=== PATIENT | female | born 1995 | race Caucasian/White ===

== ENCOUNTER 2017-05-15 14:22 | Emergency (ER) | payer OTHER ==
[2017-05-15 14:50] VITALS: TEMP 98.6
--- NOTE | 2017-05-15 16:03 | EDPHY ---
H & P Stated Complaint: chest pain and dyspnea x 1 week sent by PCP Time Seen by Provider: 05/15/17 15:49 HPI/ROS: CHIEF COMPLAINT: Chest Pain HISTORY OF PRESENT ILLNESS: The patient is a 21 female who comes to the emergency department complaining of chest pain for last week. States that she has a stabbing sensation in the since her chest last for about 30 seconds at a time. Today she also had some tingling her left leg, stabbing pain for and spasming in left her neck. He denies. She has some stressed school but nothing unusual. She does have panic attacks states that this does not feel similar. She had some shortness of breath around 1 o'clock this afternoon. No nausea vomiting or GI symptoms. No trauma or injury. No headache. REVIEW OF SYSTEMS: Constitutional: denies: chills, fever, recent illness, recent injury EENTM: denies: blurred vision, double vision, nose congestion Respiratory: denies: cough, shortness of breath Cardiac: HPI denies: irregular heart rate, lightheadedness, palpitations Gastrointestinal/Abdominal: denies: abdominal pain, diarrhea, nausea, vomiting, blood streaked stools Genitourinary: denies: dysuria, frequency, hematuria, pain Musculoskeletal: See HPI Skin: denies: lesions, rash, jaundice, bruising Neurological: denies: headache, numbness, paresthesia, tingling, dizziness, weakness Hematologic/Lymphatic: denies: blood clots, easy bleeding, easy bruising Immunologic/allergic: denies: HIV/AIDS, transplant EXAM: GENERAL: Well-appearing, well-nourished and in no acute distress. HEAD: Atraumatic, normocephalic. EYES: Pupils equal round and reactive to light, extraocular movements intact, sclera anicteric, conjunctiva are normal. ENT: TMs normal, nares patent, oropharynx clear without exudates. Moist mucous membranes. NECK: Normal range of motion, supple without lymphadenopathy or JVD. LUNGS: Breath sounds clear to auscultation bilaterally and equal. No wheezes rales or rhonchi. HEART: Regular rate and rhythm without murmurs, rubs or gallops. ABDOMEN: Soft, nontender, normoactive bowel sounds. No guarding, no rebound. No masses appreciated. BACK: No CVA tenderness, no spinal tenderness, step-offs or deformities EXTREMITIES: Normal range of motion, no pitting or edema. No clubbing or cyanosis. NEUROLOGICAL: Cranial nerves II through XII grossly intact. Normal speech, normal gait. 5/5 strength, normal movement in all extremities, normal sensation PSYCH: Normal mood, normal affect. SKIN: Warm, dry, normal turgor, no visible rashes or lesions. Source: Patient Exam Limitations: No limitations - Personal History LMP (Females 10-55): 1-7 Days Ago Current Tetanus/Diphtheria Vaccine: Yes - Medical/Surgical History Hx Asthma: Yes Hx Chronic Respiratory Disease: No Hx Diabetes: No Hx Cardiac Disease: No Hx Renal Disease: No Hx Cirrhosis: No Hx Alcoholism: No Hx HIV/AIDS: No Hx Splenectomy or Spleen Trauma: No Other PMH: asthma as a child , anxiety - Family History Significant Family History: No pertinent family hx - Social History Smoking Status: Never smoked Alcohol Use: Sober Drug Use: None Constitutional: Initial Vital Signs Temperature (C) 37.0 C 05/15/17 14:48 Heart Rate 64 05/15/17 14:48 Respiratory Rate 18 05/15/17 14:48 Blood Pressure 131/74 H 05/15/17 14:48 O2 Sat (%) 96 05/15/17 14:48 O2 Delivery Mode Room Air Allergies/Adverse Reactions: No Known Allergies Allergy (Unverified 05/15/17 14:50) Home Medications: Medication Instructions Recorded NK [No Known Home Meds] 05/15/17 Medical Decision Making - Diagnostics EKG Interpretation: An EKG obtained and was read and documented in trace view. Please see trace view for full reading and report. Sinus rhythm, no acute ischemic changes Imaging: Discussed imaging studies w/ call out clerk Radiologist ED Course/Re-evaluation: 5:20 p.m. we discussed the test results with patient and dad. The patient feels completely normal currently. We discussed follow-up and indications for returning. She understands we do not have a specific diagnosis for her symptoms today. She understands the may be related to anxiety and her father seems to agree with this. Differential Diagnosis: Partial list of the Differential diagnosis considered include but were not limited to; anxiety, PE, and although unlikely based on the history and physical exam, I also considered pneumonia, acute coronary disease, arrhythmia. I discussed these differential diagnoses and the plan with the patient as well as the usual and expected course. The patient understands that the diagnosis is provisional and that in medicine we are not always correct and that further workup is often warranted. Usual and customary warnings were given. All of the patient's questions were answered. The patient was instructed to return to the emergency department should the symptoms at all worsen or return, otherwise to followup with the physician as we discussed. - Data Points Laboratory Results: Laboratory Results 05/15/17 15:22 05/15/17 15:22 Departure - Departure Disposition: Home, Routine, Self-Care Clinical Impression: Anxiety Chest pain Qualifiers: Chest pain type: unspecified Qualified Code(s): R07.9 - Chest pain, unspecified Condition: Fair Instructions: Chest Pain (ED), Anxiety (ED) Referrals: BETSY YAÑEZ [Other] - As per Instructions
[2017-05-15 16:06] LABS: % IMMATURE GRANULYOCYTES 0.2 % (0.0-1.1); ABSOLUTE IMMATURE GRANULOCYTES 0.01 10^3/uL (0.00-0.10); ADD DIFF? NO; ADD MORPH? NO; ADD SCAN? NO; ATYPICAL LYMPHOCYTE FLAG 30 (0-99); FRAGMENT RBC FLAG 0 (0-99); HEMATOCRIT 38.4 % (38.0-47.0); HEMOGLOBIN 13.7 g/dL (12.6-16.3); LEFT SHIFT FLG 0 (0-99); LIPEMIA HEMOLYSIS FLAG 90 (0-99); MEAN CELL HEMOGLOBIN 32.2 pg (27.9-34.1); MEAN CELL HEMOGLOBIN CONCENTR. 35.7 g/dL (32.4-36.7); MEAN CELL VOLUME 90.1 fL (81.5-99.8); PLATELET CLUMPS FLAG 10 (0-99); PLATELET COUNT 258 10^3/uL (150-400); RED BLOOD CELL COUNT 4.26 10^6/uL (4.18-5.33); RED CELL DISTRIBUTION WIDTH 11.9 % (11.5-15.2)
[2017-05-15 16:13] LABS: ALANINE AMINOTRANSFERASE 27 IU/L (9-52); ALBUMIN 4.5 g/dL (3.5-5.0); ALKALINE PHOSPHATASE 74 IU/L (38-126); ANION GAP 13 mEq/L (8-16); ASPARTATE AMINOTRANSFERASE 25 IU/L (14-46); BILIRUBIN,TOTAL 1.3 mg/dL (0.1-1.4); BILIRUBIN-CONJUGATED 0.4 mg/dL (0.0-0.5); BILIRUBIN-UNCONJUGATED 0.9 mg/dL (0.0-1.1); CALCIUM 9.7 mg/dL (8.5-10.4); CARBON DIOXIDE 20 mEq/l (22-31); CHLORIDE 105 mEq/L (97-110); CREATININE 0.7 mg/dL (0.6-1.0); GLOMERULAR FILTRATION RATE > 60; GLUCOSE 70 mg/dL (70-100); SODIUM 138 mEq/L (134-144); TOTAL PROTEIN 7.7 g/dL (6.3-8.2)
--- NOTE | 2017-05-15 16:23 | CPEKG ---
Heart Rate: 58 RR Interval: 1034 P-R Interval: 120 QRSD Interval: 82 QT Interval: 432 QTC Interval: 425 P Red House: 55 QRS Red House: 60 T Wave Red House: 32 EKG Severity - BORDERLINE ECG - EKG Impression: SINUS RHYTHM EKG Impression: BORDERLINE Q WAVES IN INFERIOR LEADS EKG Impression: INFERIOR Q WAVES, PROBABLY NORMAL VARIATION Electronically Signed By: Arjun Freeman 15-May-2017 16:33:12
[2017-05-15 16:33] VITALS: O2SAT 98
[2017-05-15 16:45] LABS: TROPONIN I < 0.012 ng/mL (0.000-0.034)
[2017-05-15 17:28] VITALS: BP 109/72; PULSE 66; RESP 13
== END 2017-05-15 17:32 | disposition home or self-care (01) ==
DX: R07.9 Chest pain, unspecified (principal); F41.9 Anxiety disorder, unspecified; J45.909 Unspecified asthma, uncomplicated